=== PATIENT | female | born 1970 | race Caucasian/White ===

== ENCOUNTER 2020-12-11 20:28 | Emergency (ER) | payer OTHER ==
[~2020-12-11 20:28] MED LIST: CLONAZEPAM0.5 MG PO; CYMBALTA60 MG PO; DRISDOL50000 UNIT PO; ELIQUIS2.5 MG PO; ELMIRON100 MG PO; HCTZ25 MG PO; LANTUS **100 UNITS/ SC; NAPROXEN500 MG PO; NORCO 5-325 TA1 EACH PO; PHENERGAN25 M1 PO; PRINIVIL10 MG PO; PRINIVIL20 MG PO; PROAIR HFA8.5 GM INH; SYNTHROID125 MCG PO; TRESIBA FL100 UNIT/1 SC; VIBRAMYCIN100 MG PO; ZYRTEC10 MG PO
[2020-12-11 22:00] LABS: INR 0.98 (0.9-1.2); PROTHROMBIN TIME 12.3 SECONDS (11.4-13.6); PTT 28.5 SECONDS (22.2-34.7)
[2020-12-11 22:16] LABS: ALBUMIN 3.7 g/dL (3.4-5.0); BILIRUBIN - TOTAL 0.2 mg/dL (0.2-1.0); C-REACTIVE PROTEIN 0.6 mg/dL (<=0.90); CREATININE 0.9 mg/dL (0.51-0.95); GLOBULIN (CALCULATION) 3.5 g/dL; POTASSIUM 4.1 mmol/L (3.5-5.1); TOTAL PROTEIN 7.2 g/dL (6.4-8.2)
[2020-12-11] MEDS ORDERED: NORCO 5-325 TA1 EACH PO (23:46)
== END 2020-12-12 00:28 | disposition home or self-care (01) ==
LOC: FER 20:28
PROVIDERS: Student in an Organized Health Care Education/Training Program
DX: M79.651 Pain in right thigh (principal); G89.29 Other chronic pain; M25.551 Pain in right hip; F17.210 Nicotine dependence, cigarettes, uncomplicated; Z86.718 Personal history of other venous thrombosis and embolism; Z85.42 Personal history of malignant neoplasm of other parts of uterus; Z88.0 Allergy status to penicillin; Z88.1 Allergy status to other antibiotic agents; Z88.2 Allergy status to sulfonamides; Z88.5 Allergy status to narcotic agent; Z88.7 Allergy status to serum and vaccine
CPT/HCPCS: 36415; 73502; 73552; 80053; 85610; 85730; 86140; 93971; J2405

== ENCOUNTER 2021-02-13 01:35 | Emergency (ER) | payer OTHER ==
[2021-02-13 02:59] LABS: BASOPHIL 0.6 % (0-2); EOSINOPHIL 2.5 % (0-5); HCT 35.1 % (37.0-47.0); HGB 11.6 g/dl (12.5-16.0); LYMPHOCYTE 30.7 % (15-48); MCH 29.5 pg (25.0-31.0); MCV 89.3 fL (78.0-100.0); MONOCYTE 6.8 % (0-12); MPV 9.3 fL (6.0-9.5); NEUTROPHIL 58.3 % (41-80); NRBC 0; PLT 437 K/uL (150-400); RBC 3.93 M/uL (4.20-5.40); RDW 13.7 % (11.5-14.0); WBC 10.5 K/uL (4.0-10.5)
[2021-02-13 02:59] LABS: BILIRUBIN NEGATIVE (NEGATIVE); BLOOD NEGATIVE Ery/uL (NEGATIVE); CLARITY CLEAR (CLEAR); COLOR YELLOW (YELLOW); GLUCOSE (U) TRACE mg/dL (NORMAL); LEUKOCYTES NEGATIVE Leu/uL (NEGATIVE); NITRITE NEGATIVE (NEGATIVE); PROTEIN NEGATIVE (NEGATIVE); UROBILINOGEN 0.2 mg/dL (0.2-1.0)
[2021-02-13 03:17] LABS: ALBUMIN 3.5 g/dL (3.4-5.0); BILIRUBIN - TOTAL 0.2 mg/dL (0.2-1.0); BUN/CREAT RATIO (CALC) 17.3 RATIO; CREATININE 0.75 mg/dL (0.51-0.95); GLOBULIN (CALCULATION) 3.7 g/dL; TOTAL PROTEIN 7.2 g/dL (6.4-8.2)
[2021-02-13] MEDS ORDERED: METFORMIN HCL500 MG PO (04:56)
[2021-02-13] MEDS ORDERED: TRESIBA FL200 UNIT/1 SC (04:56)
== END 2021-02-13 05:15 | disposition home or self-care (01) ==
LOC: FER 01:35
PROVIDERS: Emergency Medicine Emergency Medical Services
DX: E11.65 Type 2 diabetes mellitus with hyperglycemia (principal); R60.0 Localized edema; I10 Essential (primary) hypertension; Z87.19 Personal history of other diseases of the digestive system; Z98.890 Other specified postprocedural states; Z90.49 Acquired absence of other specified parts of digestive tract; Z88.0 Allergy status to penicillin; Z88.2 Allergy status to sulfonamides; Z79.4 Long term (current) use of insulin
CPT/HCPCS: 36415; 71045; 80053; 81003; 82009; 83036; 84484; 85025; 93005; J1940; J7030

== ENCOUNTER 2021-02-19 15:21 | Emergency (ER) | payer OTHER ==
[~2021-02-19 15:21] MED LIST changes: +METFORMIN HCL500 MG PO; +TRESIBA FL200 UNIT/1 SC
[2021-02-19 16:18] LABS: BUN/CREAT RATIO (CALC) 15.1 RATIO; CREATININE 0.93 mg/dL (0.51-0.95); POTASSIUM 3.9 mmol/L (3.5-5.1)
[2021-02-19 16:30] LABS: BASOPHIL 0.7 % (0-2); EOSINOPHIL 1.3 % (0-5); HCT 36.8 % (37.0-47.0); HGB 12.1 g/dl (12.5-16.0); MCH 29.6 pg (25.0-31.0); MCHC 32.9 g/dL (32.0-36.0); MPV 9.4 fL (6.0-9.5); NEUTROPHIL 62.8 % (41-80); NRBC 0; PLT 452 K/uL (150-400); RBC 4.09 M/uL (4.20-5.40); RDW 13.3 % (11.5-14.0)
== END 2021-02-19 17:06 | disposition home or self-care (01) ==
LOC: FER 15:21
PROVIDERS: Emergency Medicine
DX: R00.2 Palpitations (principal); E11.9 Type 2 diabetes mellitus without complications; I10 Essential (primary) hypertension
CPT/HCPCS: 36415; 71045; 80048; 84484; 85025; 93005

== ENCOUNTER 2021-07-02 18:53 | Emergency (ER) | payer SELFPAY ==
[2021-07-02 20:44] LABS: BASOPHIL 0.4 % (0-2); EOSINOPHIL 2.1 % (0-5); HCT 40.3 % (37.0-47.0); HGB 12.5 g/dl (12.5-16.0); LYMPHOCYTE 23.7 % (15-48); MCV 90.2 fL (78.0-100.0); MONOCYTE 5.3 % (0-12); NEUTROPHIL 68.3 % (41-80); NRBC 0; PLT 433 K/uL (150-400); RBC 4.47 M/uL (4.20-5.40); RDW 14.1 % (11.5-14.0); WBC 8.9 K/uL (4.0-10.5)
[2021-07-02 20:48] LABS: INR 0.95 (0.9-1.2); PROTHROMBIN TIME 12.1 SECONDS (11.8-13.4); PTT 26.4 SECONDS (24.4-34.7)
[2021-07-02 20:58] LABS: IRON % SATURATION 25.2 %SAT (20-50)
[2021-07-02 21:05] LABS: PRO-BNP 31 pg/mL (<125)
[2021-07-02 21:06] LABS: LACTIC ACID 1.3 mmol/L (0.4-1.9)
[2021-07-02 22:13] LABS: ALBUMIN 3.6 g/dL (3.4-5.0); CREATININE 0.72 mg/dL (0.51-0.95); GLOBULIN (CALCULATION) 3.8 g/dL; TOTAL PROTEIN 7.4 g/dL (6.4-8.2)
[2021-07-02 22:14] LABS: BILIRUBIN - TOTAL 0.3 mg/dL (0.2-1.0); PHOSPHORUS 4.6 mg/dL (2.6-4.7)
[2021-07-02 22:17] LABS: POTASSIUM 4.4 mmol/L (3.5-5.1)
[2021-07-02 23:53] LABS: BILIRUBIN NEGATIVE (NEGATIVE); BLOOD NEGATIVE Ery/uL (NEGATIVE); CLARITY CLEAR (CLEAR); COLOR YELLOW (YELLOW); GLUCOSE (U) NORMAL (NORMAL); LEUKOCYTES NEGATIVE Leu/uL (NEGATIVE); NITRITE NEGATIVE (NEGATIVE); PROTEIN NEGATIVE (NEGATIVE); UROBILINOGEN 0.2 mg/dL (0.2-1.0)
[2021-07-03 00:05] LABS: C-REACTIVE PROTEIN 0.4 mg/dL (<=0.90)
[2021-07-03] MEDS ORDERED: DRISDOL50000 UNIT PO (00:56)
== END 2021-07-03 01:20 | disposition home or self-care (01) ==
LOC: FER 18:53
PROVIDERS: Emergency Medicine; Emergency Medicine Emergency Medical Services
DX: R53.1 Weakness (principal); F41.9 Anxiety disorder, unspecified; E11.9 Type 2 diabetes mellitus without complications; Z88.0 Allergy status to penicillin; Z88.1 Allergy status to other antibiotic agents; Z88.2 Allergy status to sulfonamides
CPT/HCPCS: 36415; 70460; 72131; 80053; 81003; 82306; 82550; 82652; 82728; 83540; 83550; 83605; 83615; 83690; 83735; 83880; 84100; 84145; 84439; 84443; 84484; 85025; 85610; 85730; 86140; 93005; G0480; J2060; J7030

== ENCOUNTER 2022-03-02 16:31 | Emergency (ER) | payer OTHER ==
[2022-03-02] MEDS ORDERED: NORCO 5-325 TA1 EACH PO (19:03)
== END 2022-03-02 19:17 | disposition home or self-care (01) ==
LOC: FER 16:31
DX: M25.572 Pain in left ankle and joints of left foot (principal); M25.512 Pain in left shoulder; M54.2 Cervicalgia; I10 Essential (primary) hypertension; E11.9 Type 2 diabetes mellitus without complications; Z88.0 Allergy status to penicillin; Z88.1 Allergy status to other antibiotic agents; Z88.2 Allergy status to sulfonamides; Z79.899 Other long term (current) drug therapy; Z79.01 Long term (current) use of anticoagulants; W18.30XA Fall on same level, unspecified, initial encounter; Y92.009 Unspecified place in unspecified non-institutional (private) residence as the place of occurrence of the external cause
CPT/HCPCS: 70450; 72125; 73030; 73610; 73630

== ENCOUNTER 2022-03-11 12:06 | Emergency (ER) | payer OTHER ==
[2022-03-11] MEDS ORDERED: TOPAMAX100 MG PO (12:46)
[2022-03-11] MEDS ORDERED: GABAPENTIN600 MG PO (12:47)
[2022-03-11] MEDS ORDERED: TOPROL XL 25MG25 MG PO (12:47)
[2022-03-11] MEDS ORDERED: CYCLOBENZAPRINE10 MG PO (12:48)
[2022-03-11 13:29] LABS: BASOPHIL 0.6 % (0-2); EOSINOPHIL 1.7 % (0-5); HCT 38.5 % (37.0-47.0); HGB 12.7 g/dl (12.5-16.0); LYMPHOCYTE 24.1 % (15-48); MCV 90.8 fL (78.0-100.0); MONOCYTE 5.2 % (0-12); MPV 8.6 fL (6.0-9.5); NRBC 0; PLT 447 K/uL (150-400); RBC 4.24 M/uL (4.20-5.40); RDW 13.4 % (11.5-14.0); WBC 10.6 K/uL (4.0-10.5)
[2022-03-11 13:53] LABS: ALBUMIN 4.2 g/dL (3.4-5.0); BILIRUBIN - TOTAL 0.3 mg/dL (0.2-1.0); CREATININE 0.83 mg/dL (0.51-0.95); GLOBULIN (CALCULATION) 3.9 g/dL; POTASSIUM 3.7 mmol/L (3.5-5.1); TOTAL PROTEIN 8.1 g/dL (6.4-8.2)
[2022-03-11 13:57] LABS: BILIRUBIN NEGATIVE (NEGATIVE); BLOOD NEGATIVE Ery/uL (NEGATIVE); CLARITY CLEAR (CLEAR); COLOR YELLOW (YELLOW); GLUCOSE (U) NORMAL (NORMAL); LEUKOCYTES NEGATIVE Leu/uL (NEGATIVE); NITRITE NEGATIVE (NEGATIVE); PROTEIN NEGATIVE (NEGATIVE); SPECIFIC GRAVITY <=1.005 (1.001-1.030); UROBILINOGEN 0.2 mg/dL (0.2-1.0)
[2022-03-11 14:09] LABS: URINARY WBC RARE
== END 2022-03-11 16:57 | disposition home or self-care (01) ==
LOC: FER 12:06
PROVIDERS: Physician Assistant
DX: N28.89 Other specified disorders of kidney and ureter (principal); R19.7 Diarrhea, unspecified; R10.2 Pelvic and perineal pain; I10 Essential (primary) hypertension; E11.9 Type 2 diabetes mellitus without complications; Z88.0 Allergy status to penicillin; Z88.1 Allergy status to other antibiotic agents; Z88.2 Allergy status to sulfonamides; Z88.5 Allergy status to narcotic agent
CPT/HCPCS: 36415; 80053; 81001; 85025; J2270; J2405; J7030; Q9967